=== PATIENT | male | born 1970 | race Caucasian/White ===

== ENCOUNTER 2017-02-05 06:29 | Inpatient (IN) | payer OTHER ==
[2017-01-30 14:21] LABS: HEMATOCRIT 41.1 % (42.0-52.0); HEMOGLOBIN 12.9 gm/dL (14.0-18.0); MCH 26.3 pg (26.0-34.0); MCHC 31.5 g/dL (28.0-37.0); MCV 83.5 fL (80.0-100.0); MPV 8.7 fl. (7.2-11.1); RBC 4.92 mil/uL (4.50-6.00); RDW-CV 16.3 % (10.5-14.5); WBC 10.2 thou/uL (4.0-11.0)
[2017-01-30 14:26] LABS: URINE BILIRUBIN NEGATIVE (Negative); URINE BLOOD NEGATIVE (Negative); URINE CLARITY CLEAR; URINE COLOR STRAW; URINE GLUCOSE-RANDOM NEGATIVE (Negative); URINE KETONES NEGATIVE (Negative); URINE LEUKOCYTES-REFLEX NEGATIVE (Negative); URINE NITRITE-REFLEX NEGATIVE (Negative); URINE PROTEIN NEGATIVE (Negative); URINE SPECIFIC GRAVITY 1.015 (1.005-1.030); URINE UROBILINOGEN 0.2 E.U./dl (0.2-1.0)
[2017-01-30 14:31] LABS: INR 1.1; PROTIME 10.8 Seconds (9.20-11.50)
[2017-01-30 14:34] LABS: ALBUMIN 3.7 g/dL (3.4-5.0); CALCIUM 8.3 mg/dL (8.5-10.1); CREATININE 1.4 mg/dL (0.6-1.3); POTASSIUM 3.7 mmol/L (3.5-5.1); TOTAL BILIRUBIN 0.4 mg/dL (<0.1-1.0); TOTAL PROTEIN 7.3 g/dL (6.4-8.2)
--- NOTE | 2017-01-30 17:59 | EKG ---
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
[~2017-02-05] VITALS: Ht 188 cm; Wt 117.9 kg
[~2017-02-05 06:29] MED LIST: BYSTOLIC 5 MG5 M1 PO; IBUPROFEN 200200 M1 PO; LIPITOR 20 MG T20 M1 PO; PEPCID20 MG PO; ULTRAM 50MG TAB50 MG PO; XANAX 0.5 MG0.5 MG PO
[2017-02-05 11:20] VITALS: BP 138/78
[2017-02-05 20:08] VITALS: BP 115/73
[2017-02-06 00:07] VITALS: BP 144/76
[2017-02-06 04:24] VITALS: BP 124/85
[2017-02-06 05:25] LABS: HEMATOCRIT 37.7 % (42.0-52.0); HEMOGLOBIN 11.9 gm/dL (14.0-18.0)
[2017-02-06 09:15] VITALS: BP 133/70
[2017-02-06 16:33] VITALS: BP 129/75
[2017-02-06 17:29] VITALS: BP 129/75
[2017-02-06 23:34] VITALS: BP 123/64
[2017-02-07 04:33] LABS: HEMATOCRIT 36.7 % (42.0-52.0); HEMOGLOBIN 11.4 gm/dL (14.0-18.0)
[2017-02-07 04:39] VITALS: BP 122/70
[2017-02-07] MEDS ORDERED: COLACE 100 MG100 MG PO (08:45)
--- NOTE | 2017-02-07 10:22 | S ---
[address] [address] SURGICAL PATH RPT PROCEDURE Name: RANULFO CHRISTINA Room: [address] IN [facility].#: [id number] Admission: 02/05/17 Date of : 66 Discharge: Report #: [id number] Path Case #: [id number] PATHOLOGY REPORT COLLECTION DATE: 02/05/2017 RECEIVED DATE: 02/05/2017 SUBMITTING PHYS: Dr. Raffaele Starkey II OTHER PHYS: Dr. Miguelangel Napoles SPECIMEN(S) RECEIVED: A.Right knee bone and tissue * * * * * * * * * * * * FINAL DIAGNOSIS: Right knee bone and tissue, total knee replacement: - Benign synovium, dense fibrous connective tissue and meniscus and benign bone and cartilage with degenerative changes. (JESUS:pit; 02/07/2017) PATHOLOGIST: Yassine Choi M.D. REPORT ELECTRONICALLY SIGNED BY: Yassine Choi M.D. DATE/TIME: 02/07/2017 10:21 * * * * * * * * * * * * GROSS PATHOLOGY: Received in formalin labeled "Ranulfo Christina, right knee bone and tissue," are multiple segments of bone, including tibial plateau, measuring 11.1 x 9.5 x 2.7 cm in aggregate dimensions admixed with soft tissue; meniscus is present. The specimen shows focal eburnation of the articular surfaces. Regional Branch Manager sections of bone and soft tissue are submitted in cassette A1, following decalcification. (CAA; 02/06/2017) CLINICAL HISTORY: Tricompartment osteoarthritis right knee INITIAL CPT CODE(S): A; 29892, 71413 Professional services performed by [facility] at [facility], [address] [place] [address] , [place] [address]. Technical services performed by [facility] at [address] [place] [address], [address] [address]. [place] [address] SURGICAL PATH RPT PROCEDURE Name: RANULFO CHRISTINA Room: [address] IN [facility].#: [id number] Admission: 02/05/17 Date of : 66 Discharge: Report #: [id number] Path Case #: [id number] [facility] [address] [address] PHONE: [phone] DIRECTOR: Cody Yee M.D. * * * END OF REPORT * * *
[2017-02-07 11:41] VITALS: BP 129/75
[2017-02-07] MEDS ORDERED: XARELTO10 M1 PO (11:49)
[2017-02-07] MEDS ORDERED: OXYCODONE-ACET1 EACH PO (11:56)
[2017-02-07] MEDS ORDERED: COLACE100 MG PO (12:07)
[2017-02-07 12:16] VITALS: BP 129/75
[2017-02-07 12:17] VITALS: BP 129/75
[2017-02-07 13:52] VITALS: BP 129/75
--- NOTE | 2017-02-09 16:15 | OP ---
[address] [address] OPERATIVE REPORT Name: STEVE LOVE Room: [address] IN [facility]#: [id number] Admission: 02/05/17 Attend Phys: Kristen Hernandez Discharge: 02/07/17 Date of : 66 Report #: [id number] THIS REPORT FOR: //name// CC: Raffaele White DATE OF SERVICE: 02/05/2017 PREOPERATIVE DIAGNOSIS: Right knee osteoarthritis. POSTOPERATIVE DIAGNOSIS: Right knee osteoarthritis. PROCEDURE: Right total knee arthroplasty with Navio. SURGEON: Raffaele Starkey II, DO. FIREMAN HELPER: ARACELI Kim. ANESTHESIA: Per operative record. ESTIMATED BLOOD LOSS: 50 mL. ANTIBIOTICS: Per operative record. DRAINS: Medium Hemovac. COMPLICATIONS: None. CONDITION: The patient stable to recovery room. IMPLANTS: Size listed in progress note and operative record. BRIEF HISTORY: The patient was seen in preoperative area. Preop H and P was performed. Site was marked, questions were answered. Risks and benefits were discussed with the patient in detail. The patient assumed all risks and wished to proceed. DESCRIPTION OF PROCEDURE: The patient was taken to the operative room, placed supine on the operating table and given appropriate anesthesia. The patient's right knee was sterilely prepped and draped, with well-padded tourniquet applied to the upper thigh, which was inflated to 300 mmHg after gravity exsanguination for the duration of procedure. Surgery began by midline incision, carried down to subcutaneous tissues. A medial parapatellar arthrotomy was performed, carried down to bone. The patella was then everted, and excess soft tissue was removed from the femur as well as osteophytes in this region. At this time, [place] [address] OPERATIVE REPORT Name: STEVE LOVE Room: [address]#: [id number] Admission: 02/05/17 Attend Phys: Kristen Hernandez Discharge: 02/07/17 Date of : 66 Report #: [id number] tracker pins were then placed in the tibia and femur, and the knee was registered throughout range of motion as appropriate. The appropriate alignment plan was then selected and the robotic assistance was then activated. Utilizing the robot, tracker pin holes were placed along the femur and tibia in appropriate depth and alignment. At this time, the femoral cutting block was then applied and utilizing robotic assistance, pinned into appropriate position and appropriate cuts were made at the distal femur. The 4-in-1 cutting block was then applied, checked for rotation and alignment and pinned into appropriate position. Proper cuts were made and excess bone was removed using Bottineau osteotome as well as rongeur. Attention was then turned to the tibia. Excess soft tissue was removed from the tibia. Retractors were placed. The tibial cutting block was then applied, checked for rotation and alignment utilizing the drop franco and robotic assistance, pinned into appropriate position and appropriate cuts were made. This bone was removed with rongeur, and electrocautery was then utilized to perform hemostasis in the posterior aspect of the capsule and meniscus. The tibial base was then applied, checked for rotation and alignment and pinned into appropriate position. The femur was then applied and checked for rotation and alignment, pinned into appropriate position. It was then reamed in appropriate fashion to the box region. This trial was then selected and inserted, and the knee was then taken through full range of motion, showed excellent fit and fill and excellent flexion and extension of the knee. The patella was then reamed in appropriate fashion, and 3 peg holes were drilled. It was checked for flexion and extension and had excellent tracking within the groove. These trials were then removed. The tibia was punched in appropriate fashion. Bone ends were cleansed with Pulsavac irrigation. Final cement was mixed and applied to the implants as well as the bone. These were then inserted and malleted in position, held with compression across the joint to allow the cement to cure. At this time, the tracker pins have been removed, and incision sites were closed with nylon. After cement had cured, excess was removed using Bott[place]au and osteotome. The final poly was then selected and malleted in position. Knee was once again taken through full range of motion, excellent flexion and extension, excellent stability of the knee. Final irrigation was performed. The knee was then checked for hemostasis after the tourniquet was dropped utilizing cautery. Medium Hemovac was then applied and the pain cocktail was injected. PRP gel was sprayed throughout the internal aspects of the knee. The capsule was then closed utilizing FiberWire and #1 Vicryl stitch in [id number] fashion. Skin was closed with 2-0 Vicryl and running Monocryl stitch. Dermabond dressing was applied. The patient was transported to recovery in stable condition. Counts were correct throughout the procedure. <ELECTRONICALLY SIGNED> By: Raffaele Starkey II, 02/09/17 1615 [id number] Starkey II, DO /nt
== END 2017-02-07 14:00 | disposition home health service (06) | DRG 470 ==
LOC: M.PRE 06:29 → M.ORTHSURG 10:18 → M.TBA 10:18 → M.PRE 12:47 → M.ORTHSURG 17:23
PROVIDERS: Orthopaedic Surgery; ADMIT Internal Medicine
PROC: 0SRC0J9 Replacement of Right Knee Joint with Synthetic Substitute, Cemented, Open Approach (ICD-10-PCS; principal; 2017-02-05)
DX: M17.11 Unilateral primary osteoarthritis, right knee (principal); I12.0 Hypertensive chronic kidney disease with stage 5 chronic kidney disease or end stage renal disease; E78.00 Pure hypercholesterolemia, unspecified; N18.3 Chronic kidney disease, stage 3 (moderate); E78.5 Hyperlipidemia, unspecified; E66.9 Obesity, unspecified; Z68.33 Body mass index [BMI] 33.0-33.9, adult; Z90.81 Acquired absence of spleen